=== PATIENT | female | born 1960 | race Caucasian/White ===

== ENCOUNTER 2018-07-25 14:53 | Emergency (ER) | payer MEDICAID ==
[~2018-07-25] VITALS: Ht 167.6 cm; Wt 127.3 kg
[~2018-07-25 14:53] MED LIST: ATEN50TA PO; CALC260T6 PO; HYDR25TA4 PO; LEVO150T PO; LISI40TA4 PO
[2018-07-25 15:17] VITALS: BP 181/94
[2018-07-25] MEDS ORDERED: ibuprofen 200mg tablet PO ONE (15:25)
== END 2018-07-25 15:31 | disposition home or self-care (01) ==
LOC: ER 14:53
DX: S09.90XA Unspecified injury of head, initial encounter (principal); I10 Essential (primary) hypertension; Z88.2 Allergy status to sulfonamides; Z79.899 Other long term (current) drug therapy; Z87.891 Personal history of nicotine dependence; W22.8XXA Striking against or struck by other objects, initial encounter; Y93.89 Activity, other specified; Y92.89 Other specified places as the place of occurrence of the external cause; Y99.8 Other external cause status
CPT/HCPCS: 99282

== ENCOUNTER 2019-12-21 09:46 | Emergency (ER) | payer MEDICAID ==
[~2019-12-21] VITALS: Ht 165.1 cm; Wt 136.4 kg
[2019-12-21 09:49] VITALS: BP 105/54
[2019-12-21 10:53] LABS: BASOPHILS # (AUTO) 0.1 X10'3 (0-0.2); BASOPHILS % (AUTO) 0.4 % (0-1); EOSINOPHILS % (AUTO) 0.1 % (0-6); LYMPHOCYTES # (AUTO) 0.6 X10'3 (1.1-4.8); MEAN PLATELET VOLUME 8.5 FL (7.4-10.4)
[2019-12-21 10:55] LABS: HEMATOCRIT 40.5 % (35.0-45.0); HEMOGLOBIN 13.7 g/dl (12.0-16.0); LYMPHOCYTES % (AUTO) 4.1 % (21-51); MEAN CORPUSCULAR HEMOGLOBIN 27.3 PG (27.0-31.0); MEAN CORPUSCULAR HGB CONC 33.8 g/dL (33.0-36.5); MEAN CORPUSCULAR VOLUME 80.8 FL (78-98); MONOCYTES # (AUTO) 1.1 X10'3 (0-0.9); NEUTROPHILS # (AUTO) 13.7 X10'3 (1.8-7.7); NEUTROPHILS % (AUTO) 88.4 % (42-75); PLATELET COUNT 211 X10'3 (140-440); RED BLOOD COUNT 5.01 X10'6 (4.20-5.60); RED CELL DISTRIBUTION WIDTH 15.6 % (11.5-14.5); WHITE BLOOD COUNT 15.5 X10'3 (4.5-11.0)
[2019-12-21 11:18] LABS: ALANINE AMINOTRANSFERASE 14 U/L (12-78); ALBUMIN/GLOBULIN RATIO 0.7 (1.1-1.5); ALKALINE PHOSPHATASE 94 IU/L (46-116); ANION GAP 12 (8-16); ASPARTATE AMINO TRANSFERASE 14 U/L (10-37); BILIRUBIN,TOTAL 1.2 MG/DL (0.1-1.0); BLOOD UREA NITROGEN 10 MG/DL (7-18); BUN/CREATININE RATIO 10.2 (6.6-38.0); CALCIUM 8.7 MG/DL (8.5-10.1); CHLORIDE 97 MMOL/L (99-107); CREATININE 0.98 MG/DL (0.40-0.90); GLUCOSE 148 MG/DL (70-104); SODIUM 135 MMOL/L (135-145); TOTAL CARBON DIOXIDE 25.9 MMOL/L (24-32); TOTAL PROTEIN 7.1 G/DL (6.4-8.2); eGFR 58 ML/MIN
[2019-12-21 11:20] LABS: POTASSIUM 2.6 MMOL/L (3.5-5.1)
[2019-12-21] MEDS ORDERED: amox tr/potassium clavulanate 875/125mg TAB PO ONE (11:45)
[2019-12-21] MEDS ORDERED: azithromycin 250mg tablet PO ONE (11:45)
[2019-12-21] MEDS ORDERED: potassium Cl 20 mEq SR tablet PO ONE (11:45)
[2019-12-21] MEDS ORDERED: ondansetron 4mg rapidly disintigrating tab PO ONE (11:45)
[2019-12-21] MEDS ORDERED: AZIT500T PO (11:47)
[2019-12-21] MEDS ORDERED: AMOX-117 PO (11:47)
[2019-12-21] MEDS ORDERED: ONDA4TAB6 PO (11:50)
[2019-12-21] MEDS ORDERED: POTA-82 PO (11:50)
== END 2019-12-21 12:24 | disposition home or self-care (01) ==
LOC: ER 09:47
DX: J18.9 Pneumonia, unspecified organism (principal); E87.6 Hypokalemia; J06.9 Acute upper respiratory infection, unspecified; B97.89 Other viral agents as the cause of diseases classified elsewhere; I10 Essential (primary) hypertension; Z98.890 Other specified postprocedural states; Z88.2 Allergy status to sulfonamides; Z79.899 Other long term (current) drug therapy
CPT/HCPCS: 36415; 71045; 80053; 85025; 99284

== ENCOUNTER 2020-03-14 14:15 | Outpatient (CLI) | payer MEDICAID ==
[~2020-03-14 14:15] MED LIST changes: +ONDA4TAB6 PO; +POTA-82 PO
== END 2020-03-14 23:59 | disposition home or self-care (01) ==
LOC: RAD 14:15
PROVIDERS: ATTEND Family Medicine
DX: K21.9 Gastro-esophageal reflux disease without esophagitis (principal); R13.14 Dysphagia, pharyngoesophageal phase
CPT/HCPCS: 74230

== ENCOUNTER 2020-06-12 06:17 | Day surgery (SDC) | payer MEDICAID ==
[~2020-06-12] VITALS: Ht 165.1 cm; Wt 138.2 kg
[2020-06-12 06:28] VITALS: BP 127/74
[2020-06-12] MEDS ORDERED: fentaNYL/PF 50MCG/1 ML 2ML syringe ONE (06:30)
[2020-06-12] MEDS ORDERED: MIDAZolam 5mg/5ml vial ONE (06:30)
[2020-06-12] MEDS ORDERED: LIDOcaine Viscous 15ml cup ONE (06:30)
[2020-06-12] MEDS ORDERED: ATOR40TA72 (06:31)
[2020-06-12] MEDS ORDERED: ASPI-611 PO (06:32)
[2020-06-12] MEDS ORDERED: NAPR-56 PO (06:33)
[2020-06-12] MEDS ORDERED: ISOS30TA6 PO (06:33)
[2020-06-12] MEDS ORDERED: NITR0.4T48 SL (06:33)
[2020-06-12] MEDS ORDERED: IBUP-1985 PO (06:34)
[2020-06-12] MEDS ORDERED: AMLO10TA PO (06:35)
[2020-06-12] MEDS ORDERED: CALC1CAP21 PO (06:35)
[2020-06-12] MEDS ORDERED: ESTR1TAB19 PO (06:36)
[2020-06-12] MEDS ORDERED: DULO30CA52 PO (06:37)
[2020-06-12] MEDS ORDERED: CHLO25TA10 PO (06:37)
[2020-06-12 08:30] VITALS: BP 116/66
[2020-06-12 08:40] VITALS: BP 104/56
[2020-06-12 08:50] VITALS: BP 105/55
[2020-06-12 09:00] VITALS: BP 129/66
== END 2020-06-12 09:14 | disposition home or self-care (01) ==
LOC: GI LAB 06:17
PROVIDERS: ATTEND Internal Medicine Gastroenterology
DX: R13.10 Dysphagia, unspecified (principal); K22.2 Esophageal obstruction; K29.50 Unspecified chronic gastritis without bleeding; I10 Essential (primary) hypertension; Z88.2 Allergy status to sulfonamides; Z79.899 Other long term (current) drug therapy
CPT/HCPCS: 43239; 43248; 99152; C1769; J2250; J3010; J7040; A4620

== ENCOUNTER 2021-10-17 19:38 | Emergency (ER) | payer MEDICAID ==
[~2021-10-17] VITALS: Ht 165.1 cm; Wt 143.3 kg
[~2021-10-17 19:38] MED LIST changes: +AMLO10TA PO; +ASPI-611 PO; -ATEN50TA PO; +ATOR40TA72; +CALC1CAP21 PO; -CALC260T6 PO; +CHLO25TA10 PO; +DULO30CA52 PO; +ESTR1TAB19 PO; -HYDR25TA4 PO; +IBUP-1985 PO; +ISOS30TA84 PO; +LISI40TA13 PO; -LISI40TA4 PO; +NAPR-56 PO; +NITR0.4T48 SL; -ONDA4TAB6 PO; -POTA-82 PO
--- NOTE | 2021-10-17 22:55 | NUR ---
No s/s of distress at this time, no c/o pain. VS within normal range. At patient's request given water to see fodd had be dislodged. Patient was unable to swallow water.
[2021-10-17] MEDS ORDERED: nitroGLYCERIN 0.4mg SUBLingual tab SL PRN (23:50)
[2021-10-18 00:14] VITALS: BP 132/70
== END 2021-10-18 00:44 | disposition home or self-care (01) ==
LOC: ER 19:39
DX: T18.108A Unspecified foreign body in esophagus causing other injury, initial encounter (principal); R07.0 Pain in throat; R11.0 Nausea; I10 Essential (primary) hypertension; Z98.890 Other specified postprocedural states; Z88.2 Allergy status to sulfonamides; Z79.82 Long term (current) use of aspirin; Z79.899 Other long term (current) drug therapy; X58.XXXA Exposure to other specified factors, initial encounter; Y93.89 Activity, other specified; Y92.89 Other specified places as the place of occurrence of the external cause; Y99.8 Other external cause status
CPT/HCPCS: 99285